=== PATIENT | female | born 1960 | race Hispanic/Latino ===

== ENCOUNTER → 2019-05-31 12:12 | Outpatient (CLI) | payer OTHER, SELFPAY | PROVIDERS: PCP Family Medicine; Visit Provider Family Medicine | DX: B96.89 Other specified bacterial agents as the cause of diseases classified elsewhere (principal); N76.0 Acute vaginitis | CPT/HCPCS: 87210 ==

== ENCOUNTER 2019-07-24 12:40 | Day surgery (SDC) | payer OTHER, SELFPAY ==
[2019-07-24] VITALS (7 sets, daily range): BP systolic 88–106; BP diastolic 56–69; PULSE 74–89; RESP 13–19; TEMP 36.2–36.4; O2SAT 96–100; BMI 20.3
--- NOTE | 2019-07-24 | PATH_ITS ---
[facility] Accession Number: [id number] . 01 Material submitted: . PART A: cecum - CECAL POLYP PART B: colon - RANDOM COLON BIOPSIES . 02 Diagnosis: A. Cecum, Polyp, Biopsy: Benign lymphoid aggregate. . B. Random Colon, Biopsies: Colonic mucosa with no diagnostic abnormality. Negative for active, chronic, and microscopic colitis. Negative for dysplasia and malignancy. . MRV 07/29/2019 0938 Local . 02 Electronically signed: . Karen Beckett MD, Pathologist NPI- [id number] . 01 Gross description: . Part A: CECAL POLYP: Received in formalin is 1 fragment(s) of marquez, soft tissue measuring 0.3 x 0.2 x 0.1 cm submitted entirely in 1 cassette(s) Part B: RANDOM COLON BIOPSIES: Received in formalin are multiple fragment(s) of marquez, soft tissue measuring 1.0 x 0.7 x 0.1 cm in aggregate submitted entirely in 1 cassette(s) /QBJ 07/25/2019 0727 Local . 02 Pathologist provided ICD-10: R19.7 . 02 CPT . 777745, [id number] Performed at: 01 [facility] [address], [place], [place] [id number] MD Juan J Conner MD Phone: [phone] Performed at: 02 [facility] [address] [place], [place] [id number] MD Karen Beckett MD Phone: [phone]
[2019-07-24] MEDS: SODIUM CHLORIDE 0.9% 1,000 ML 70 ML IV (13:14)
--- NOTE | 2019-07-24 15:36 | P.HP_ITS ---
History of Present Illness History of Present Illness Date Patient Seen: 07/24/19 Chief complaint: [id number] Narrative: Patient presented for colonoscopy. She was last seen in the office on June 21 2019 for change of bowel habits with fecal incontinence. She has not had previous screening colonoscopy. Denies any changes in her symptoms since that time. We did discuss how anxious and agitated patient is in preop, that monitored anesthesia care would likely be a better choice for her sedation. Patient History Medical History Acne (Chronic ~1975) Chicken pox (Resolved) Foot pain (Chronic) Herpes (Chronic ~2002) Menopause (Chronic ~2007) Tuberculosis (Inactive ~1985) Surgical History Anesthesia (Resolved) History of tonsillectomy (Resolved ~1967) [place] teeth removed (Resolved) Family & Social History Family History Father Hyperlipidemia Mother History of heart disease Hyperlipidemia Sister Hyperlipidemia Sister No problems noted. Grandmother Stomach cancer Social History: household members spouse lives independently Yes Tobacco & Substance use: Smoking Status Former smoker alcohol intake current Meds Home Medications and Allergies Home Medications Medication Instructions Recorded Confirmed Type Estriol Vaginal Perles 0.5 mg VAGINAL .QHS #20 unit 06/06/19 Rx Allergies Allergy/AdvReac Type Severity Reaction Status Date / Time Sulfa (Sulfonamide Allergy Unknown Verified 05/31/19 10:44 Antibiotics) Review of Systems Review of Systems Narrative: Patient feels extremely anxious. She was very tearful in preoperative evaluation. ROS Unobtainable: All systems reviewed & are unremarkable except as noted in HPI and below Exam Vital Signs (past 8 hours): - 07/24/19 13:06 Temperature 97.4 F L Pulse Rate 78 Respiratory Rate 17 Blood Pressure 105/69 Pulse Oximetry 100 Oxygen Delivery Method Room Air Const General: healthy appearing and anxious Nutritional Appearance: average body habitus and well nourished Orientation: oriented x3 Other: Patient extremely anxious, tearful and crying at times. Shaking at times. Resp Effort & Inspection: normal respiratory effort Auscultation: clear to auscultation bilaterally Cardio Rate: regular rate Rhythm: regular rhythm Heart Sounds: S1 normal and S2 normal GI Palpation: soft, No guarding, No rigid and No tender Auscultation: normal bowel sounds Extrem Right lower extremity: no edema Left lower extremity: no edema Psych Speech and Movement: agitated Mood: anxious mood Attitude: cooperative Assessment & Plan Assessment & Plan narrative: 1. Change in bowel habits -with intermittent diar lianne 2. Fecal incontinence 3. No previous colonoscopy, screening average risk Colonoscopy today, further recommendations to follow
--- NOTE | 2019-07-24 16:38 | P.OP.ENDO_ITS ---
Operative Date/Time/Diagnoses Date of procedure: 07/24/19 Time of procedure: 16:16 Procedure Notes Procedure in detail: Surgeon: Allie Gomez DO Procedure: Colonoscopy with polypectomy and random colon biopsy Preoperative diagnosis: 1. Change in bowel habits with increased diarrhea 2. Fecal incontinence 3. No previous screening colonoscopy Postoperative diagnosis: 1. 2 mm cecal polyp 2. Normal-appearing terminal ileum 3. Normal-appearing colon mucosa biopsied to rule out microscopic colitis 4. Grade 1 mild, internal hemorrhoids Medications: Monitored anesthesia care, see anesthesia note Preanesthesia Assessment An H and P was performed/updated and the Px?s ASA class is 1. The procedure was discussed in detail with the patient. The potential risks and complications including infection, bleeding, missed lesions, perforation, need for surgery in case of perforation, prolonged hospital stay, and were explained. A brief question and answer period was allotted and once all questions were answered, informed consent was obtained. Due to patient's severe anxiety prior to the procedure, the decision was made to proceed with anesthesia for sedation. The patient was brought back to the procedure room and placed on standard jennifer toring. The patient?s vital signs were monitored continuously throughout the entire procedure. Prior to starting, a timeout was performed to confirm the patient?s identity, allergies, medications, and procedure. Procedure in detail The patient was placed in left lateral decubitus position and once adequate sedation was obtained a CARLOS was performed. The digital rectal examination did not reveal any palpable lesions. The tip of the colonoscope was placed in the anal canal and advanced without difficulty all the way to the cecum which was identified by the appendiceal orifice and the ileocecal valve. Careful examination of all taveras of the colon was performed with irrigation of any residual stool. Tortuous colon, abdominal pressure was used to navigate the colon. 2 mm sessile polyp in the cecum removed with cold forceps Normal-appearing colon mucosa and random biopsies performed to rule out microscopic colitis Normal appearing terminal ileum Grade 1 mild internal hemorrhoids noted on retroflexion Exam otherwise unremarkable The patient tolerated the procedure well and will be brought back to the recovery area to be discharged once criteria are met. The prep was judged to be good/excellent and adequate to identify polyps less than 5 mm. The withdrawal time was 9min. The total physician intraservice time was 21min. Complications There were no complications and estimated blood loss was minimal. Recommendations: Resume high-fiber diet Continue outPx medications Follow up pathology results Repeat colonoscopy recommendations will be based on pathology results Office follow up if persistent symptoms An emergency contact number was given to the patient for any complications related to the procedure
== END 2019-07-24 17:14 | disposition home or self-care (01) ==
PROVIDERS: Family Provider Family Medicine; PCP Family Medicine; Visit Provider Student in an Organized Health Care Education/Training Program
PROC: 0DJD8ZZ Inspection of Lower Intestinal Tract, Via Natural or Artificial Opening Endoscopic (ICD-10-PCS; CPT 45378; principal; 2019-07-24 14:00)
DX: K63.5 Polyp of colon (principal); R19.4 Change in bowel habit; R15.9 Full incontinence of feces; K64.0 First degree hemorrhoids
CPT/HCPCS: 45380; J2704; J3010

== ENCOUNTER → 2020-02-18 12:07 | Outpatient (CLI) | payer OTHER, SELFPAY ==
[2020-02-19 10:35] LABS: SARS CoV19 IgG Negative (Negative)
== END ==
PROVIDERS: Family Provider Family Medicine; PCP Family Medicine; Referring Provider Family Medicine; Visit Provider Family Medicine
DX: Z11.59 Encounter for screening for other viral diseases (principal)
CPT/HCPCS: 36415; 86769

== ENCOUNTER → 2021-09-17 13:23 | Outpatient (CLI) | payer OTHER, SELFPAY | PROVIDERS: Family Provider Family Medicine; PCP Family Medicine; Visit Provider Physician Assistant | DX: N34.3 Urethral syndrome, unspecified (principal) | CPT/HCPCS: 87077; 87086; 87186 ==